=== PATIENT | female | born 1965 | race Caucasian/White ===

== ENCOUNTER 2022-01-15 21:47 | Emergency (ER) | payer OTHER ==
[2022-01-15 23:25] LABS: HEMOGLOBIN 13.5 gm/dl (12.3-15.3); RED BLOOD COUNT 4.99 M/UL (4.00-5.10); WHITE BLOOD COUNT 17.4 K/UL (4.5-11.0)
[2022-01-15 23:46] LABS: BUN/CREATININE RATIO 30 (0-10)
== END 2022-01-16 01:53 | disposition home or self-care (01) ==
LOC: ER1 21:47
PROVIDERS: Student in an Organized Health Care Education/Training Program
DX: S80.01XA Contusion of right knee, initial encounter (principal); S80.02XA Contusion of left knee, initial encounter; S60.419A Abrasion of unspecified finger, initial encounter; V43.62XA Car passenger injured in collision with other type car in traffic accident, initial encounter; Y92.410 Unspecified street and highway as the place of occurrence of the external cause
CPT/HCPCS: 70450; 71260; 72125; 73130; 73562; 80053; 81001; 82550; 82553; 84484; 85025; 90471; 90715; 99284; Q9967